=== PATIENT | male | born 1990 | race Caucasian/White ===

== ENCOUNTER 2016-09-22 09:26 | Emergency (ER) | payer OTHER, BC ==
[~2016-09-22 09:26] MED LIST: FIORICET,ESG1 TABLET PO; FLEXERIL10 MG PO; MOTRIN600 MG PO; MOTRIN800 MG PO; ZOFRAN4 MG PO
[2016-09-22 09:49] LABS: EOSINOPHIL (%) 1.5 % (0-5); EOSINOPHIL COUNT 0.1 K/uL (0-0.3); HEMATOCRIT 39.5 % (38.0-50.0); IMMATURE GRANULOCYTE (%) 0.6 % (0.0-0.7); INSTRUMENT ABS NEUTROPHIL CT 2.5 K/uL; LYMPHOCYTE COUNT 2.2 K/uL (1.0-2.8); MCH 29.1 PG (29.0-34.0); MCHC 34.4 G/DL (30.0-36.0); MCV 84.4 FL (86-99); MONOCYTE (%) 7.5 % (3-12); MONOCYTE COUNT 0.4 K/uL (0-0.8); NEUTROPHIL (%) 47.8 % (45-76); NEUTROPHIL COUNT 2.5 K/uL (1.8-6.4); PLATELET COUNT 300 K/uL (156-360); RBC DIS.WIDTH-CV 12.6 % (11.8-14.6); RBC DIS.WIDTH-SD 38.7 % (39-53); RED BLOOD COUNT 4.68 M/uL (4.00-5.50); WHITE BLOOD COUNT 5.2 K/uL (4.1-10.2)
[2016-09-22 10:00] LABS: AMYLASE 41 IU/L (1-118); CHLORIDE 105 mEq/L (99-109); POTASSIUM 3.8 mEq/L (3.7-5.4); SODIUM 140 mEq/L (136-147)
[2016-09-22 10:02] LABS: GLUCOSE 100 mg/dL (70-99)
[2016-09-22 10:03] LABS: ANION GAP 8 MEQ/L (2-14)
[2016-09-22 10:05] LABS: SERUM ETHYL ALCOHOL < 10 mg/dL
[2016-09-22 10:06] LABS: GFR ESTIMATE (CALCULATED) > 59 mL/min/
[2016-09-22 10:07] LABS: UREA NITROGEN (BUN) 21 mg/dL (9-23)
[2016-09-22 10:09] LABS: LIPASE 7 U/L (1.0-51.0)
[2016-09-22] MEDS ORDERED: PERCOCET 5/31 TABLET PO (11:48)
[2016-09-22] MEDS ORDERED: MOTRIN600 MG PO (11:48)
[2016-09-22] MEDS ORDERED: VICODIN 5-3001 EACH PO (12:15)
== END 2016-09-22 12:34 | disposition home or self-care (01) ==
LOC: TRA 09:26
PROVIDERS: Emergency Medicine
DX: S02.2XXA Fracture of nasal bones, initial encounter for closed fracture (principal); T14.8 Other injury of unspecified body region; M25.562 Pain in left knee; V48.5XXA Car driver injured in noncollision transport accident in traffic accident, initial encounter
CPT/HCPCS: 70450; 70486; 71260; 72125; 73564; 74177; 80048; 81003; 82150; 83690; 85025; 86850; 86900; 86901; 99281; 99285; G0480; J2405; J3010